=== PATIENT | female | born 1985 | race Caucasian/White ===

== ENCOUNTER 2018-09-01 10:53 | Outpatient (CLI) | payer OTHER | END 2018-09-01 12:30 | disposition home or self-care (01) | LOC: OBT 10:53 → L-D 10:56 → OBT 12:30 | DX: O26.892 Other specified pregnancy related conditions, second trimester (principal); M79.662 Pain in left lower leg; M79.661 Pain in right lower leg; Z3A.32 32 weeks gestation of pregnancy | CPT/HCPCS: 76818; 93970 ==

== ENCOUNTER 2018-09-12 16:06 | Outpatient (CLI) | payer OTHER | END 2018-09-12 18:20 | disposition home or self-care (01) | LOC: OBT 16:06 → L-D 16:06 → OBT 18:20 | DX: O47.03 False labor before 37 completed weeks of gestation, third trimester (principal); Z3A.34 34 weeks gestation of pregnancy | CPT/HCPCS: G0463 ==

== ENCOUNTER 2018-10-16 20:53 | Inpatient (IN) | payer OTHER ==
[2018-10-16] MEDS ORDERED: CARBOPROST 250 MCG INJ IM (21:00)
[2018-10-16] MEDS ORDERED: MINERAL OIL LIGHT 10 ML VIAL TOP (21:00)
[2018-10-16] MEDS ORDERED: OXYTOCIN 30 UNITS/LR 500 ML IV ×2 (21:00)
[2018-10-16] MEDS ORDERED: BUTORPHANOL 2 MG INJ IV (21:00)
[2018-10-16] MEDS ORDERED: IBUPROFEN 600 MG TAB PO (21:00)
[2018-10-16] MEDS ORDERED: LIDOCAINE 1% (MPF) 30 ML INJ INJ (21:00)
[2018-10-16] MEDS ORDERED: METHYLERGONOVINE 0.2 MG INJ IM (21:00)
[2018-10-16] MEDS ORDERED: MISOPROSTOL 200 MCG TAB PR (21:00)
[2018-10-16] MEDS: LACTATED RINGER'S 1,000 ML IV (21:29)
[2018-10-16] MEDS: AMPICILLIN 2 GM/NS (PMX) 100 ML IVPB (21:48)
[2018-10-16 21:58] LABS: ADD MAN DIFF? NO
[2018-10-16 22:03] LABS: WHITE BLOOD COUNT 8.5 10^3/ul (4.8-10.8)
[2018-10-16 22:03] LABS: BASOPHILS % 0.1 % (0.0-2.0); EOSINOPHILS # 0.1 10^3/ul (0.0-0.5); EOSINOPHILS % 0.7 % (0.0-7.0); HEMATOCRIT 34.9 % (37.0-47.0); HEMOGLOBIN 11.2 g/dl (12.0-16.0); LYMPHOCYTES # 2.2 10^3/ul (0.8-2.9); LYMPHOCYTES % 25.4 % (15.0-51.0); MEAN CORPUSCULAR HEMOGLOBIN 26.9 pg (29.0-33.0); MEAN CORPUSCULAR HGB CONC 32.1 g/dl (32.0-37.0); MEAN CORPUSCULAR VOLUME 83.9 fl (82.0-101.0); MEAN PLATELET VOLUME 10.2 fl (7.4-10.4); MONOCYTE # 0.8 10^3/ul (0.3-0.9); MONOCYTES % 8.8 % (0.0-11.0); NEUTROPHIL # 5.5 10^3/ul (1.6-7.5); NEUTROPHILS % 64.2 % (39.0-77.0); PLATELET COUNT 319 10^3/UL (140-415); RED BLOOD COUNT 4.16 10^6/ul (4.20-5.40); RED CELL DISTRIBUTION WIDTH 13.6 % (11.5-14.5)
[2018-10-16 22:21] LABS: INR 0.94; PROTIME 12.7 Sec (11.9-14.9)
[2018-10-16 22:22] LABS: PARTIAL THROMBOPLASTIN TIME 25.6 Sec (23.0-35.0)
[2018-10-16] MEDS: LABETALOL 200 MG TAB PO (22:22)
[2018-10-16 22:52] LABS: HEPATITIS B SURFACE ANTIGEN NEGATIVE (NEGATIVE)
[2018-10-16 22:59] LABS: ALANINE AMINOTRANSFERASE 12 IU/L (13-69); ALBUMIN 3.4 g/dl (3.3-4.9); ALBUMIN/GLOBULIN RATIO 0.91; ALKALINE PHOSPHATASE 201 IU/L (42-121); ANION GAP 6 (5-13); ASPARTATE AMINO TRANSFERASE 21 IU/L (15-46); BILIRUBIN,INDIRECT 0.3 mg/dl (0-1.1); BILIRUBIN,TOTAL 0.3 mg/dl (0.2-1.3); BLOOD UREA NITROGEN 9 mg/dl (7-20); CALCIUM 9.3 mg/dl (8.4-10.2); CARBON DIOXIDE 24 mmol/L (21-31); CHLORIDE 106 mmol/L (97-110); CREATININE 0.94 mg/dl (0.44-1.00); Estimated GFR > 60 mL/min (>60); GLUCOSE 109 mg/dl (70-220); SODIUM 136 mmol/L (135-144); TOTAL PROTEIN 7.1 g/dl (6.1-8.1); URIC ACID 6.6 mg/dl (3.1-7.9)
[2018-10-16 23:10] LABS: ADD UMIC YES; UR ASCORBIC ACID NEGATIVE (NEGATIVE); UR BACTERIA FEW /HPF (NONE SEEN); UR BILIRUBIN (Dip) NEGATIVE (NEGATIVE); UR BLOOD (Dip) 3+ mg/dL (NEGATIVE); UR CLARITY SLIGHTLY CLOUDY (CLEAR); UR COLOR YELLOW (YELLOW); UR GLUCOSE (Dip) NEGATIVE (NEGATIVE); UR KETONES (Dip) NEGATIVE (NEGATIVE); UR LEUKOCYTE ESTERASE (Dip) TRACE Leu/ul (NEGATIVE); UR MUCUS FEW /HPF (NONE SEEN); UR NITRITE (Dip) NEGATIVE (NEGATIVE); UR RBC 2 /HPF (0-5); UR SPECIFIC GRAVITY (Dip) 1.015 (1.003-1.030); UR SQUAMOUS EPITHELIAL CELL FEW /HPF (FEW); UR TOTAL PROTEIN (Dip) NEGATIVE (NEGATIVE); UR UROBILINOGEN (Dip) NEGATIVE (NEGATIVE); UR WBC 4 /HPF (0-5)
[2018-10-17] MEDS: AMPICILLIN 1 GM/NS (PMX) 50 ML IVPB ×6 (01:15→20:55)
[2018-10-17] MEDS: LACTATED RINGER'S 1,000 ML IV ×3 (06:54→20:03)
[2018-10-17] MEDS: LABETALOL 200 MG TAB PO ×2 (08:52→20:56)
[2018-10-17] MEDS ORDERED: MISOPROSTOL 25 MCG CAPSULE VAG (09:05)
[2018-10-17] MEDS: MISOPROSTOL 25 MCG CAPSULE PO ×3 (09:19→20:00)
[2018-10-17 15:48] LABS: RAPID PLASMA REAGIN NONREACTIVE (NR)
[2018-10-17] MEDS ORDERED: ONDANSETRON 4 MG INJ IV (16:00)
[2018-10-17] MEDS ORDERED: MISOPROSTOL 25 MCG CAPSULE PO (17:00)
[2018-10-17] MEDS ORDERED: FENTAnyl 50 MCG/ML VIAL (20:19)
[2018-10-17] MEDS ORDERED: FENTAnyl 2MCG/ML-ROPIV 0.2% 100 ML BAG EPI (20:30)
[2018-10-17] MEDS ORDERED: NALOXONE (0.4 MG/ML) INJ IV (20:30)
[2018-10-17] MEDS: OXYTOCIN 30 UNITS/LR 500 ML IV (22:21)
[2018-10-18] MEDS: LACTATED RINGER'S 1,000 ML IV (00:44)
[2018-10-18] MEDS: AMPICILLIN 1 GM/NS (PMX) 50 ML IVPB (01:46)
[2018-10-18] MEDS: OXYTOCIN 30 UNITS/LR 500 ML IV ×2 (03:40→07:27)
[2018-10-18] MEDS: LACTATED RINGER'S 1,000 ML IV* ×3 (05:54→21:54)
[2018-10-18] MEDS ORDERED: DIBUCAINE 1% 30 GM OINT TOP (06:00)
[2018-10-18] MEDS ORDERED: HYDROCODONE/APAP (5/325) TAB PO (06:00)
[2018-10-18] MEDS ORDERED: CARBOPROST 250 MCG INJ IM (06:00)
[2018-10-18] MEDS: IBUPROFEN 600 MG TAB PO ×4 (06:00→23:46)
[2018-10-18] MEDS ORDERED: MISOPROSTOL 200 MCG TAB PR (06:00)
[2018-10-18] MEDS ORDERED: ACETAMINOPHEN 325 MG TAB PO (06:00)
[2018-10-18] MEDS: LABETALOL 200 MG TAB PO ×2 (08:57→20:52)
[2018-10-18] MEDS: SENNA/DOCUSATE NA (8.6MG/50MG) TAB PO ×2 (08:57→20:52)
[2018-10-18] MEDS: WITCH HAZEL/GLYCERIN PAD PR (08:57)
[2018-10-18] MEDS: BENZOCAINE 20% 56 ML SPRAY TOP (08:57)
[2018-10-19] MEDS: LACTATED RINGER'S 1,000 ML IV* (05:54)
[2018-10-19] MEDS: IBUPROFEN 600 MG TAB PO ×4 (05:57→23:36)
[2018-10-19 06:52] LABS: ADD MAN DIFF? NO
[2018-10-19 06:59] LABS: WHITE BLOOD COUNT 11.5 10^3/ul (4.8-10.8)
[2018-10-19 06:59] LABS: BASOPHILS % 0.2 % (0.0-2.0); EOSINOPHILS # 0.1 10^3/ul (0.0-0.5); EOSINOPHILS % 0.4 % (0.0-7.0); HEMATOCRIT 32.5 % (37.0-47.0); HEMOGLOBIN 10.4 g/dl (12.0-16.0); LYMPHOCYTES # 2.5 10^3/ul (0.8-2.9); LYMPHOCYTES % 21.5 % (15.0-51.0); MEAN CORPUSCULAR HEMOGLOBIN 27.2 pg (29.0-33.0); MEAN CORPUSCULAR VOLUME 85.1 fl (82.0-101.0); MEAN PLATELET VOLUME 10.2 fl (7.4-10.4); MONOCYTE # 0.8 10^3/ul (0.3-0.9); MONOCYTES % 6.7 % (0.0-11.0); NEUTROPHIL # 8.1 10^3/ul (1.6-7.5); NEUTROPHILS % 70.8 % (39.0-77.0); PLATELET COUNT 290 10^3/UL (140-415); RED BLOOD COUNT 3.82 10^6/ul (4.20-5.40); RED CELL DISTRIBUTION WIDTH 14.1 % (11.5-14.5)
[2018-10-19] MEDS: SENNA/DOCUSATE NA (8.6MG/50MG) TAB PO ×2 (09:07→20:58)
[2018-10-19] MEDS: LABETALOL 200 MG TAB PO ×2 (09:07→20:58)
[2018-10-20] MEDS: IBUPROFEN 600 MG TAB PO ×2 (05:52→11:54)
[2018-10-20] MEDS: DIPHTH/TET/ACEL PERTUSS (ADULT) 0.5 ML VIAL IM* (07:39)
[2018-10-20] MEDS: LABETALOL 200 MG TAB PO (08:50)
[2018-10-20] MEDS: SENNA/DOCUSATE NA (8.6MG/50MG) TAB PO (08:50)
== END 2018-10-20 15:48 | disposition home or self-care (01) | DRG 806 ==
LOC: PP1 10-18 04:55 → L-D 20:53
PROVIDERS: Obstetrics & Gynecology
PROC: 10E0XZZ Delivery of Products of Conception, External Approach (ICD-10-PCS; principal; 2018-10-18)
PROC: 0KQM0ZZ Repair Perineum Muscle, Open Approach (ICD-10-PCS; 2018-10-18)
DX: O70.0 First degree perineal laceration during delivery (principal); O10.92 Unspecified pre-existing hypertension complicating childbirth; Z37.0 Single live birth; Z3A.39 39 weeks gestation of pregnancy
CPT/HCPCS: 62322; 76815; 80053; 81001; 84560; 85025; 85384; 85610; 85730; 86592; 86850; 86900; 86901; 87340; 99464